=== PATIENT | female | born 1965 | race Caucasian/White ===

== ENCOUNTER 2017-01-16 20:06 | Emergency (ER) | payer OTHER ==
[~2017-01-16] VITALS: Ht 165.1 cm; Wt 94.3 kg
[~2017-01-16 20:06] MED LIST: ASPIR-LOW81 M1 PO; BACDS PO; BACO TOP; BACTRIM DS1 TAB PO; BEN25 PO; CEPHALEXIN500 MG PO; CICLOPIROX OLAM0.77% TOP; CIPRO250 MG PO; CLINDAMYCIN HC300 MG PO; CLINDAMYCIN PO; CLINDAMYCIN300 M1 PO; COLACE100 MG PO; DOC-Q-LACE100 MG PO; DOXYCYCLINE HY100 MG PO; FERROUS SULFAT325 M2 PO; FISH OIL500 MG PO; FOLIC ACID1 MG PO; GLU5 PO; GOOD SENSE ASPI81 M3 PO; HIBICLENS118 ML TOP; HYDROCORTISONE11 TOP; KEF500 PO; KEFLEX500 MG PO; L40 PO; LAC PO; LAC15L PO; LEVAQUIN750 MG PO; MAG PO; METFORMIN ER500 M1 PO; METFORMIN HCL500 MG PO; MIC8 PO; MOT600 PO; MOTRIN800 MG PO; NAPROSYN500 MG PO; NEO500 PO; NORCO1 TA2 PO; OMEPRAZOLE DR20 M1 PO; PRE5 PO; PRI20 PO; VITAMIN B121000 MC3 PO; ZES10 PO; ZES20 PO; ZESTRIL20 MG PO; ZOC20 PO; ZOCOR40 MG PO; [UNRECOGNIZED DRUG - OTHER] TP
[2017-01-16 23:13] VITALS: BP 133/77
== END 2017-01-16 23:13 | disposition home or self-care (01) ==
LOC: ED 20:06
DX: L02.212 Cutaneous abscess of back [any part, except buttock and flank] (principal); E78.00 Pure hypercholesterolemia, unspecified
CPT/HCPCS: J0696; J1885; J2001

== ENCOUNTER 2017-01-18 19:12 | Inpatient (IN) | payer OTHER ==
[~2017-01-18] VITALS: Ht 165.1 cm; Wt 94.8 kg
[2017-01-18 20:34] LABS: BASOPHIL % 0.4 % (0-2); PLATELET COUNT 180 x10^3mcL (130-400); RED CELL DISTRIBUTION WIDTH 14.3 % (11.5-14.5)
[2017-01-18 20:53] LABS: CALCIUM 8.7 mg/dL (8.5-10.1); CARBON DIOXIDE 30.5 mmol/L (21-32); CHLORIDE SERUM 105 mmol/L (98-107); CREATININE SERUM 0.7 mg/dL (0.6-1.0); GFR1 > 60 mL/min; GLUCOSE SERUM 96 mg/dL (74-106); POTASSIUM SERUM 3.9 mmol/L (3.5-5.1); SODIUM SERUM 142 mmol/L (136-145)
[2017-01-18 21:04] LABS: ALBUMIN 3.2 g/dL (3.4-5.0); ALKALINE PHOSPHATASE 141 U/L (46-116); ALT/SGPT 22 U/L (14-59); AST/SGOT 22 U/L (15-37); BILIRUBIN TOTAL 0.3 mg/dL (0.20-1.00); TOTAL PROTEIN, SERUM 8.1 g/dL (6.4-8.2)
[2017-01-18 21:06] LABS: CK-MB 3.6 ng/mL (0-3.6)
[2017-01-18 21:44] LABS: MAGNESIUM 1.9 mg/dL (1.8-2.4)
[2017-01-18 21:45] LABS: FREE T4 1.2 ng/dL (0.76-1.46); FREE THYROXINE INDEX 2.8 ug/dL (1.4-4.5); T3 TOTAL 1.14 ng/mL; T4(THYROXINE) 8.7 ug/dL (4.7-13.3)
[2017-01-18] MEDS ORDERED: NORCO1 TA2 PO (22:01)
[2017-01-18 23:59] VITALS: BP 118/78
[2017-01-19 02:09] LABS: UA SPECIFIC GRAVITY >=1.030 (1.005-1.035); microscopic required? YES; urine erythrocyte 3+ (NEGATIVE)
[2017-01-19 02:29] LABS: AMPHETAMINE QUAL UR NONE DETECTED (NEG <=1000)
[2017-01-19 06:27] LABS: BASOPHIL % 0.5 % (0-2); PLATELET COUNT 165 x10^3mcL (130-400)
[2017-01-19 06:32] LABS: CALCIUM 8.3 mg/dL (8.5-10.1); CARBON DIOXIDE 27.1 mmol/L (21-32); CHLORIDE SERUM 104 mmol/L (98-107); CREATININE SERUM 0.6 mg/dL (0.6-1.0); GFR1 > 60 mL/min; GLUCOSE SERUM 89 mg/dL (74-106); MAGNESIUM 1.9 mg/dL (1.8-2.4); PHOSPHOROUS 4.1 mg/dL (2.5-4.9); SODIUM SERUM 140 mmol/L (136-145)
[2017-01-19 07:11] LABS: RED CELL DISTRIBUTION WIDTH 14.6 % (11.5-14.5)
[2017-01-19 09:02] VITALS: BP 102/53
[2017-01-19 13:59] VITALS: BP 92/47
[2017-01-19 17:20] VITALS: BP 108/62
[2017-01-19 21:23] VITALS: BP 121/61
[2017-01-20 05:51] LABS: BASOPHIL % 0.5 % (0-2); PLATELET COUNT 162 x10^3mcL (130-400); RED CELL DISTRIBUTION WIDTH 14.1 % (11.5-14.5)
[2017-01-20 05:56] LABS: CALCIUM 8.5 mg/dL (8.5-10.1); CARBON DIOXIDE 26.4 mmol/L (21-32); CHLORIDE SERUM 105 mmol/L (98-107); CREATININE SERUM 0.6 mg/dL (0.6-1.0); GFR1 > 60 mL/min; GLUCOSE SERUM 82 mg/dL (74-106); MAGNESIUM 1.7 mg/dL (1.8-2.4); PHOSPHOROUS 4.5 mg/dL (2.5-4.9); POTASSIUM SERUM 4.1 mmol/L (3.5-5.1); SODIUM SERUM 139 mmol/L (136-145)
[2017-01-20 06:00] VITALS: BP 94/51
[2017-01-20 10:07] VITALS: BP 98/58
[2017-01-20 18:46] VITALS: BP 121/71
[2017-01-20 21:44] VITALS: BP 99/53
[2017-01-21 05:44] VITALS: BP 116/62
[2017-01-21 06:38] LABS: BASOPHIL % 0.5 % (0-2); PLATELET COUNT 143 x10^3mcL (130-400); RED CELL DISTRIBUTION WIDTH 14.5 % (11.5-14.5)
[2017-01-21 06:50] LABS: CALCIUM 8.5 mg/dL (8.5-10.1); CARBON DIOXIDE 26.9 mmol/L (21-32); CHLORIDE SERUM 103 mmol/L (98-107); CREATININE SERUM 0.6 mg/dL (0.6-1.0); GFR1 > 60 mL/min; GLUCOSE SERUM 88 mg/dL (74-106); MAGNESIUM 1.8 mg/dL (1.8-2.4); PHOSPHOROUS 4.1 mg/dL (2.5-4.9); POTASSIUM SERUM 4.1 mmol/L (3.5-5.1); SODIUM SERUM 138 mmol/L (136-145)
[2017-01-21 09:20] VITALS: BP 126/67
[2017-01-21 18:17] VITALS: BP 98/59
[2017-01-21 21:30] VITALS: BP 100/55
[2017-01-22 06:18] VITALS: BP 110/52
[2017-01-22 06:29] LABS: CALCIUM 8.6 mg/dL (8.5-10.1); CARBON DIOXIDE 26.8 mmol/L (21-32); CHLORIDE SERUM 103 mmol/L (98-107); CREATININE SERUM 0.7 mg/dL (0.6-1.0); GFR1 > 60 mL/min; GLUCOSE SERUM 94 mg/dL (74-106); POTASSIUM SERUM 3.9 mmol/L (3.5-5.1); SODIUM SERUM 137 mmol/L (136-145)
[2017-01-22 06:54] LABS: BASOPHIL % 0.4 % (0-2); PLATELET COUNT 121 x10^3mcL (130-400); RED CELL DISTRIBUTION WIDTH 14.2 % (11.5-14.5)
[2017-01-22 08:00] VITALS: BP 94/45
[2017-01-22 18:23] VITALS: BP 113/64
[2017-01-22 20:16] VITALS: BP 94/50
[2017-01-22 22:52] VITALS: BP 110/60
[2017-01-23 06:05] VITALS: BP 194/60
[2017-01-23 06:18] LABS: BASOPHIL % 0.6 % (0-2)
[2017-01-23 06:25] LABS: CALCIUM 8.4 mg/dL (8.5-10.1); CARBON DIOXIDE 25.6 mmol/L (21-32); CHLORIDE SERUM 104 mmol/L (98-107); CREATININE SERUM 0.7 mg/dL (0.6-1.0); GFR1 > 60 mL/min; GLUCOSE SERUM 87 mg/dL (74-106); POTASSIUM SERUM 4.1 mmol/L (3.5-5.1); SODIUM SERUM 139 mmol/L (136-145)
[2017-01-23 06:43] LABS: PLATELET COUNT 122 x10^3mcL (130-400); RED CELL DISTRIBUTION WIDTH 14.6 % (11.5-14.5)
[2017-01-23 09:22] VITALS: BP 93/47
[2017-01-23 13:53] VITALS: BP 93/47
[2017-01-23] MEDS ORDERED: LAC PO (13:54)
[2017-01-23] MEDS ORDERED: NOR10T PO (13:55)
[2017-01-23] MEDS ORDERED: BACDS PO (13:55)
[2017-01-23] MEDS ORDERED: COL100UDC PO (13:55)
== END 2017-01-23 16:22 | disposition home health service (06) | DRG 383 ==
LOC: ED 19:12 → DU 20:25 → MU 20:25 → DU 22:59 → MU 01-19 16:38
PROVIDERS: Emergency Medicine; Family Medicine; Surgery; ADMIT Family Medicine
PROC: 0JB70ZZ Excision of Back Subcutaneous Tissue and Fascia, Open Approach (ICD-10-PCS; principal; 2017-01-21 12:00)
DX: L03.312 Cellulitis of back [any part except buttock and flank] (principal); N17.0 Acute kidney failure with tubular necrosis; E44.0 Moderate protein-calorie malnutrition; D68.69 Other thrombophilia; E83.42 Hypomagnesemia; E11.9 Type 2 diabetes mellitus without complications; R31.9 Hematuria, unspecified; D64.9 Anemia, unspecified; I10 Essential (primary) hypertension; E78.5 Hyperlipidemia, unspecified; E66.9 Obesity, unspecified; Z68.34 Body mass index [BMI] 34.0-34.9, adult; Z87.11 Personal history of peptic ulcer disease; Z91.19 Patient's noncompliance with other medical treatment and regimen; Z86.14 Personal history of Methicillin resistant Staphylococcus aureus infection
CPT/HCPCS: 80307; 83880; 84439; 94150; J1170; J2001; J2250; J2270; J2405; J3490; J7030; Q0092

== ENCOUNTER 2017-02-23 01:28 | Inpatient (IN) | payer OTHER ==
[~2017-02-23] VITALS: Ht 167.6 cm; Wt 102.0 kg
[~2017-02-23 01:28] MED LIST changes: +COL100UDC PO; +NOR10T PO
[2017-02-23 02:29] LABS: CALCIUM 8.6 mg/dL (8.5-10.1); CARBON DIOXIDE 27.7 mmol/L (21-32); CHLORIDE SERUM 106 mmol/L (98-107); CREATININE SERUM 0.7 mg/dL (0.6-1.0); GFR1 > 60 mL/min; GLUCOSE SERUM 114 mg/dL (74-106); POTASSIUM SERUM 3.9 mmol/L (3.5-5.1); SODIUM SERUM 141 mmol/L (136-145)
[2017-02-23 02:35] LABS: BASOPHIL % 0.3 % (0-2); PLATELET COUNT 139 x10^3mcL (130-400)
[2017-02-23 02:36] LABS: RED CELL DISTRIBUTION WIDTH 15.4 % (11.5-14.5)
--- NOTE | 2017-02-23 02:40 | NUR ---
PT TO ED WITH C/O LEFT LEG PAIN WITH "CELLULITIS" SINCE . PT DESCRIBES PAIN "TIGHT" WITH INTERMITTENT EPISODES OF SHARP PAIN. PER PT, PT WAS SEEN BY PCP WAS GIVEN ABX, THEN SEEN AGAIN YESTERDAY AND WAS GIVEN "WATER PILLS". PT ALSO STATED TO WASHING WOUND SITE WITH ALCOHOL TO CLEAN DUE TO "BLEEDING". PT STATES NURSE WHO SEES HER RECOMMENDED GOING TO ED TO BE EVALUATED. PT ADMITS TO NON-COMPLIANCE TO DIABETES MEDICATION. PT EDUCATED THE IMPORTANCE OF MEDICATION COMPLIANCE AND WITH INCREASED NON-COMPLIANCE AND EPISODES OF WOUNDS AND INFECTIONS CAN LEAD TO AMPUTATION. PT GAVE UNDERSTANDING, STATING "I KNOW MY NURSE TOLD ME THAT TOO AND I DON'T WANT THAT". PT A&OX4,NO ACUTE DISTERSS NOTED, RESP EVEN AND UNLABORED, POSITIONED TO COMFORT, PLACED ON MONITOR. LEFT LOWER EXTERMITY NOTED WITH SHINY, TIGHT, DISCOLORED CRACKING SKIN WITH SEROSANGUINOUS DISCHARGE NOTED BETWEEN CRACKS OF SKIN. WOUND CULTURE COLLECTED AND SENT TO LAB.
[2017-02-23 02:42] LABS: ALKALINE PHOSPHATASE 131 U/L (46-116); ALT/SGPT 28 U/L (14-59); AST/SGOT 29 U/L (15-37); BILIRUBIN TOTAL 0.27 mg/dL (0.20-1.00); TOTAL PROTEIN, SERUM 7.6 g/dL (6.4-8.2)
--- NOTE | 2017-02-23 02:43 | NUR ---
PT MEDICATD PER ORDER. SEE EMAR. NO S/S OF ADV RXNS AT THIS ITME. WILL CONTINUE TO MONITOR.
[2017-02-23 02:46] LABS: CK-MB 1.2 ng/mL (0-3.6)
[2017-02-23 03:08] LABS: ALBUMIN 3.3 g/dL (3.4-5.0)
[2017-02-23] MEDS ORDERED: METFORMIN500 M1 (03:22)
[2017-02-23] MEDS ORDERED: SULFAMETHOXAZOL1 TA3 (03:22)
[2017-02-23] MEDS ORDERED: IBUPROFEN400 MG (03:23)
[2017-02-23] MEDS ORDERED: METFORMIN HCL500 MG PO (03:48)
[2017-02-23] MEDS ORDERED: IBUPROFEN600 MG PO (03:49)
[2017-02-23] MEDS ORDERED: KLOR-CON 1010 MEQ PO (03:49)
[2017-02-23] MEDS ORDERED: FUROSEMIDE20 MG PO (03:50)
[2017-02-23] MEDS ORDERED: CARISOPRODOL350 MG PO (03:51)
--- NOTE | 2017-02-23 04:13 | NUR ---
PT MEDICATED PER ORDER .SEE EMAR. NO S/S OF ADV RXNS. WILL CONTINUE TO MONITOR.
--- NOTE | 2017-02-23 04:57 | NUR ---
REPORT GIVEN TO ALLEN MONROY TO ASSUME CARE OF PT.
--- NOTE | 2017-02-23 04:57 | NUR ---
REC'D REPORT FROM SANTHOSH VILLA FROM ED.
--- NOTE | 2017-02-23 05:10 | NUR ---
PT TRANSFERRED TO TELE BED 256B VIA [facility] WITH ALLEN LOCO AND EMT JEMAL AT PT SIDE. PT A&OX4,NO ACUTE DISTRESS NOTED, RESP EVEN AND UNLABORED, TRANSFERRED WITHOUT INCIDENCE.
--- NOTE | 2017-02-23 05:56 | NUR ---
REC'D PT FROM ED VIA [facility] ACCOMPANIED BY NURSE AND . PT AAOX4, SPEECH CLEAR. DENIES DIZZINESS OR VILLA. ON TELE #11 READING NSR. DENIES CP OR PALPITATIONS. NO RESP DISTRESS. BREATHING EVEN/UNLABORED ON RA. 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 INCISION TO L BACK COVERED WITH GAUZE, CDI. PICTURES TAKEN. C/O PAIN TO LLE 7-8/10, THROBBING AND TIGHT. WILL GIVE NORCO PER ORDER. PT ABLE TO MOVE ALL EXTREMITIES. REPORTS SOME NUMBING TO LUIS F TOES. LLE ELEVATED WITH TWO PILLOWS. IVF INFUSING TO LFA @ 120 ML/HR. UA COLLECTED. ORIENTED TO DEVICES AND SURROUNDINGS. CALL LIGHT WITHIN REACH, BED AT LOWEST POSITION. WILL CONTINUE TO MONITOR.
[2017-02-23 06:08] LABS: FREE T4 0.88 ng/dL (0.76-1.46); FREE THYROXINE INDEX 2.5 ug/dL (1.4-4.5); T4(THYROXINE) 7.7 ug/dL (4.7-13.3)
[2017-02-23 06:18] VITALS: BP 129/75
--- NOTE | 2017-02-23 07:25 | NUR ---
AAOX4 ABLE TO VERBALIZE NEEDS WITH CLEAR SPEECH, FOUND ON ROOM AIR, PLACED ON OXYGEN VIA NC AT 2L, SYM CHEST EXPANSION, UNLABORED BREATHING, WHEEZING NOTED AT LUIS F MIDLOBES, ON TELE #2 NSR ON MONITOR, DENIES ANY HEART RELATED PAIN OR DISCOMFOR, ACTIVE BOWEL SOUNDS X4 QUADS, IV AT RFA INFUSING NS AT 20ML/HR, REORIENTED TO ROOM AND CALL LIGHT, WILL CONTINUE TO PROVIDE CARE.
[2017-02-23 09:45] VITALS: BP 109/63
--- NOTE | 2017-02-23 11:21 | NUR ---
DOSE OF LEVAQUIN INFUSED, NO S&S OF ALLERGIC REACTION NOTED OR REPORTED, PT STATES FEELING HUNGRY, DR JHONNY RÍOS, NO DIET ORDERS HAVE BEEN ENTERED.
[2017-02-23 13:03] VITALS: BP 99/55
[2017-02-23 13:18] LABS: UA SPECIFIC GRAVITY 1.015 (1.005-1.035); microscopic required? YES; urine erythrocyte 1+ (NEGATIVE)
[2017-02-23 13:26] LABS: AMPHETAMINE QUAL UR NONE DETECTED (NEG <=1000)
--- NOTE | 2017-02-23 13:57 | NUR ---
ABLE TO TOLERATE LUNCH WITHOUT GI DISTRESS, WOUND CULTURE OF BACK ABSCESS OBTAINED, BLE ELEVATED WITH PILLOWS, CALL LIGHT WITHIN REACH, WILL CONTINUE TO PROVIDE CARE.
--- NOTE | 2017-02-23 16:10 | NUR ---
WOUND CULTURES SENT TO LAB.
[2017-02-23 17:17] VITALS: BP 106/68
[2017-02-23 17:18] VITALS: BP 106/68
--- NOTE | 2017-02-23 19:49 | NUR ---
RESTING IN BED, AROUSABLE TO LIGHT TOUCH, C/O SLIGHT DISCOMFORT AT HER LLE, NO OTHER SIGNIFICANT CHANGES NOTED, CARE ENDORSED TO NIGHT NURSE.
--- NOTE | 2017-02-23 19:55 | NUR ---
PT. SLEEPING, EASY TO WAKE, ORIENTED X4. DENIES HEADACHE OR DIZZINESS. BREATH SOUNDS CLEAR THROUGHOUT LUNG NICHOLAS, RESP. EVEN, UNLABORED. ABD. SOFT AND ROUND, BOWEL SOUNDS ACTIVE. BLE PEDAL PULSES MODERATE. LLE CELLULITIS PRESENT. BOARDERS MARKED TO FOLLOW SPREAD OF CELLULITIS. SKIN DRY, ASHENED, DISCOLORED. LT. MID BACK W/ GAUZE DRSG. PT. W/ HX OF CYST DRAINAGE. DRSG CDI. IVF INFUSING WELL, SITE WNL. CALL LIGHT WITHIN REACH.
[2017-02-23 21:33] VITALS: BP 113/57
--- NOTE | 2017-02-23 22:09 | NUR ---
PT. C/O ITCHY DRY SKIN ON BACK AREA. KENALOG CREAM APPLIED TO AREA OF ITCHING. PT.'S BACK SLIGHTLY DRY W/ OLD SCATTERED DARKENED AREAS. LT. MID BACK W/ OLD SCAR FROM CYST INCISION. SKIN HEALED, BUT RED, TENDER AND SWOLLEN.
[2017-02-23 23:59] VITALS: Ht 167.6 cm; Wt 102.0 kg
--- NOTE | 2017-02-24 00:25 | NUR ---
PT. COMPLETED SPONGE BATH. C/O PAIN IN LLE, 04/06. ALSO REQUESTING MORE OR CREAM FOR HER SKIN. PRN MORPHINE WAS GIVEN. WILL MONITOR.
[2017-02-24 05:36] VITALS: BP 104/59
--- NOTE | 2017-02-24 07:15 | NUR ---
RESTING IN BED, AROUSABLE TO LIGHT TOUCH, BLE ELEVATED ON PILLOWS, LLE CONTINUES TO DRAIN CLEAR YELLOW FLUID, DENIES NUMBNESS OR TINGLING, WEAK PEDAL PULSES, LEFT UPPER BACK ABSCESS DRY, NO DRAINAGE NOTED, PT C/O ITCHINESS, KENOLOG CREAM APPLIED AT AFFECTED AREAS, ON TELE #11 NSR ON MONITOR, DENIES ANY HEART RELATED PAIN OR DISCOMFORT, IV INFUSING NS AT 120ML/HR, CALL LIGHT WITHIN REACH, WILL CONTINUE TO PROVIDE CARE.
[2017-02-24 09:50] VITALS: BP 110/68
--- NOTE | 2017-02-24 11:08 | NUR ---
MICROL[facility] REPORTS PRESUMPTIVE MRSA AT LEFT BACK WOUND ABSCESS. PT IS CURRENTLY RECEIVING IV ABX AND IS ON CONTACT ISO.
[2017-02-24 13:16] VITALS: BP 120/73
--- NOTE | 2017-02-24 13:59 | NUR ---
APPLIED KENOLOG CREAM AND COMPRESSION BANDAGES TO LLE, PT TOLERATED WITHOUT DISTRESS.
[2017-02-24 17:45] VITALS: BP 105/67
--- NOTE | 2017-02-24 18:39 | NUR ---
NOTABLE DECREASE IN LLE'S SWELLING AND DRAINAGE, NO DRAINAGE NOTED AT LEFT UPPER BACK, GREAT APPETITE, BG WNL, NO OTHER SIGNIFICANT CHANGES NOTED, WILL ENDORSE CARE TO NIGHT NURSE FOR CONTINUED CARE.
--- NOTE | 2017-02-24 19:40 | NUR ---
PT. AWAKE, ALERT, ORIENTED X4. DENIES HEADACHE OR DIZZINESS. BREATH SOUNDS CLEAR THROUGHOUT LUNG NICHOLAS, RESP. EVEN, UNLABORED. NO SOB NOTED. NSR ON MONITOR. DENIES CHESTPAIN. LLE W/ COMPRESSION WRAP. PEDAL PULSES MODERATE BLE. +1-2 EDEMA TO LLE. SCATTERED DARK SPOTS ON HER BACK AREA. ALSO, PT. HAS HX OF PAST SURGICAL DRAINAGE TO CYST ON LT. MID BACK. SITE HEALED, INTACT W/ NO OPENING NOTED, BUT AREA HAS SOME REDNESS AND DRIED AREAS. PER PT, IT ITCHES HER OFTEN. IVF NS AT 120CC/HR. FAMILY AT BEDSIDE. CALL LIGHT WITHIN REACH.
--- NOTE | 2017-02-24 21:26 | NUR ---
PT. C/O LLE PAIN, 05/06. PRN MORPHINE GIVEN ORDERED. WILL MONITOR.
[2017-02-24 21:59] VITALS: BP 110/60
--- NOTE | 2017-02-24 23:18 | NUR ---
PT. SLEEPING, RECEIVED PRN MORPHINE FOR C/O LLE PAIN. CALL LIGHT WITHIN REACH.
[2017-02-25 05:15] VITALS: BP 113/61
[2017-02-25 06:47] LABS: CALCIUM 8.4 mg/dL (8.5-10.1); CARBON DIOXIDE 28.5 mmol/L (21-32); CHLORIDE SERUM 106 mmol/L (98-107); CREATININE SERUM 0.6 mg/dL (0.6-1.0); GFR1 > 60 mL/min; GLUCOSE SERUM 78 mg/dL (74-106); MAGNESIUM 1.8 mg/dL (1.8-2.4); PHOSPHOROUS 4.7 mg/dL (2.5-4.9); POTASSIUM SERUM 3.7 mmol/L (3.5-5.1); SODIUM SERUM 141 mmol/L (136-145)
[2017-02-25 07:02] LABS: BASOPHIL % 0.5 % (0-2)
[2017-02-25 07:18] LABS: PLATELET COUNT 107 x10^3mcL (130-400); RED CELL DISTRIBUTION WIDTH 15.2 % (11.5-14.5)
--- NOTE | 2017-02-25 07:25 | NUR ---
RECIEVED REPORT FROM SUKHI VILLA AT BEDSIDE. PT IS AAOX4 ABLE TO FOLLOW VERBAL COMMANDS. ON TELE # 11 NSR, DENIES CHEST PAIN AND HEART PALPITATIONS. L LEG DRESSING CDI. L LEG IS ELEVATED WITH ONE PILLOW. PT'S REDNESS INDICATES RECEEDING PER OUTLINE MARKING ON SKIN. DARK PATCHY DISCOLORATIONS ON BACK. HEALING INCISION ON RIGHT LOWER BACK, OPT. FOUND PT ON RA NO SIGNS OF SOB OR ACUTE DISTRESS, CLEAR BL LUNG SOUNDS. ABD ACTIVE. PT DENIES PAIN AT THIS TIME. NS INFUSING AT 120ML/HR. BED AT LOW AND CALL LIGHT WITHIN REACH.
[2017-02-25 09:15] VITALS: BP 115/65
[2017-02-25 12:34] VITALS: BP 108/59
--- NOTE | 2017-02-25 16:00 | NUR ---
PT C/O OF CONSTIPATION WILL MEDICATE PER EMAR.
[2017-02-25 16:36] VITALS: BP 114/74
--- NOTE | 2017-02-25 19:07 | NUR ---
PT IS RESTING IN BED WITH EVEN CHEST RISE. NO SIGNS OF SOB OR ACUTE DISTRESS. WILL ENDORSE ALL CARE TO ONCOMING RN. BED AT LOW AND CALL LIGHT WITHIN REACH.
--- NOTE | 2017-02-25 20:00 | NUR ---
RECEIVED PT IN BED AWAKE, ALERT, ORIENTED X4. SPEECH CLEAR. ABLE TO MAKE NEEDS KNOWN. LUNG SOUNDS CLEAR. NO TELE MONITOR NOTED. DENIES CHEST PAIN. BS ACTIVE IN ALL FOUR QUADS. ABD IS NONDISTENDED, OBESE. PT HAS FULL ROM, AMBULATES WITHOUT ASSISTANCE. LLE WITH COMPRESSION DRESSING INTACT, ELEVATED WITH PILLOW. IVF INFUSING NS AT 50ML/HR TO LEFT HAND. SHIFT ASSESSMENT COMPLETED. CALL LIGHT WITHIN REACH. WILL CONTINUE TO MONITOR CLOSELY.
[2017-02-25 22:00] VITALS: BP 111/60
--- NOTE | 2017-02-25 23:20 | NUR ---
PT C/O PAIN, MEDICATED WITH NORCO ORDERED. ALL NEEDS TENDED TO. WILL CONTINUE TO MONITOR CLOSELY.
--- NOTE | 2017-02-26 03:00 | NUR ---
PT RESTING IN BED IN NO DISTRESS. APPEARS TO BE SLEEPING WITH EYES CLOSED. IVF ONGOING. CALL LIGHT WITHIN REACH. WILL CONTINUE TO MONITOR CLOSELY.
[2017-02-26 06:42] VITALS: BP 110/60
--- NOTE | 2017-02-26 06:50 | NUR ---
PT APPEARS TO BE SLEEPING IN BED, EASILY AROUSABLE. FSBS IS 80. IVF ONGOING. CALL LIGHT WITHIN REACH. PT HAS BEEN IN CONTACT ISOLATION THROUGH OUT SHIFT. WILL ENDORSE TO INCOMING SHIFT.
--- NOTE | 2017-02-26 07:25 | NUR ---
RECEIVED Pt. AAOX4. RESPIRATIONS EVEN AND UNLABORED. DENIES PAIN/DISCOMFORT AT THIS TIME. NO DISTRESS NOTED IVF RUNNING TO IV AT LEFT HAND PATENT AND INTACT. LLE WITH DSG IN PLACE CDI. BACK SCATTERED BLACK DISCOLORATIONS NOTED. 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 BED LOW/LOCKED. CONTACT PRECAUTIONS OBSERVED. CALL LIGHT IN REACH. WILL CONTINUE TO MONITOR.
[2017-02-26 07:50] LABS: BASOPHIL % 0.5 % (0-2); PLATELET COUNT 108 x10^3mcL (130-400); RED CELL DISTRIBUTION WIDTH 15.1 % (11.5-14.5)
--- NOTE | 2017-02-26 08:30 | NUR ---
MADE ROUNDS WITH DR. MOLINA AND MEDICINE TEAM, Pt. POSSIBLE DISCHARGE TODAY AND AGREED WITH PLAN OF CARE.
[2017-02-26 09:42] VITALS: BP 96/53
--- NOTE | 2017-02-26 13:20 | NUR ---
1000: WOUND CARE EVALUATION NOTES: REASON FOR EVALUATION: LLE VENOUS STASIS ULCERATION AND UPPER BACK ABSCESS COMPLETE SKIN ASSESSMENT DONE ON THIS 52 Y/O FEMALE PATIENT FROM HOME TO [facility], WITH INITIAL DIAGNOSIS OF LEFT LEG CELLULITIS. PAST MEDICAL HISTORY INCLUDE DM, HTN, LEFT LEG CELLULITIS AND LIVER DISEASE. ALL ABOVE INFORMATION WAS OBTAINED FROM THE ADMISSION H&P. LABS ARE WBC 5.1, H/H 10.9/33, GLUCOSE 78, ALBUMIN 3.3, PT/INR 10.6/1.0 AND PTT 28.3. CURRENT MEDS INCLUDE CEFAZOLIN, MULTIVITAMINS, ASPIRIN, METFORMIN, INSULIN, MORPHINE AND NORCO. PATIENT IS AWAKE, ALERT, ORIENTED TO PERSON, PLACE, DATE AND TIME. SKIN WARM TO TOUCH WNL, TOENAILS WNL, NO EDEMA, NO HAIR GROWTH AND +2 BILATERAL PEDAL PULSES. URINE AND BOWEL CONTINENT, ABLE TO AMBULATE TO THE RESTROOM CLAIMED. MULTIPLE SELF INFLICTED SCRATCHES NOTED ON THE BACK, ABDOMEN AND ARMS. INITIAL PLAN OF CARE AND PRESSURE PREVENTIVE MEASURES DISCUSSED, ABLE TO VERBALIZE UNDERSTANDING. INTEGUMENTARY: LLE - VENOUS STASIS DERMATITIS - DRY, FLAKY WITH DISCOLORATION. LEFT MID BACK - WITH PINK SCARRING AND DISCOLORATIONS RECOMMENDATIONS: -CLEANSE LLE WITH MILD SOAP AND WATER, PAT DRY, APPLY VIT A&D OINT, WARP WITH CASEY AND SERENA WRAP Q DAY AND PRN WITH SOILING/DISPLACEMENT -ENCOURAGE PATIENT TO TURN AND REPOSITION SELF Q2H WHEN IN BED -ASSESS SKIN CONDITION DURING POSITION CHANGE, PLEASE PAY PARTICULAR ATTENTION TO SACRALCOCCYX, ELBOWS AND HEELS -OFFLOAD BILATERAL HEELS BY PLACING PILLOWS UNDER CALVES AT ALL TIMES, UNLESS OTHERWISE CONTRAINDICATED -KEEP SKIN CLEAN AND DRY AT ALL TIMES. RECOMMENDATIONS DISCUSSED WITH PRIMARY RN AND RESIDENT PHYSICIAN, DR. BARON NO FOLLOW UP NEEDED AT THIS TIME. PLEASE CONTACT [facility] FOR ANY CONCERNS, QUESTIONS AND CHANGES IN SKIN CONDITION. PATIENT IS FOR POSSIBLE D/C TODAY. WOUND CARE D/C INSTRUCTIONS GIVEN, ABLE TO VERBALIZE UNDERSTANDING. D/C PICTURES OBTAINED.
[2017-02-26] MEDS ORDERED: BACDS PO (14:55)
[2017-02-26] MEDS ORDERED: LAC PO (14:55)
[2017-02-26] MEDS ORDERED: KEN025C TOP (15:00)
[2017-02-26 16:39] VITALS: BP 96/50
--- NOTE | 2017-02-26 16:56 | NUR ---
CONSENT OBTAINED FOR RECENT AND PREVIOUS ECHO FROM DR. VILA OFFICE. Pt. REQUESTED FOR DAUGHTER TO SIGN CONSENT DUE TO Pt. FEELING WEAK AT THIS TIME. WITNESSED DAUGHTER RYAN INMAN SIGNS AUTHORIZATION FOR USE OR DISCLOSURE OF HEALTH INFORMATION.
[2017-02-26] MEDS ORDERED: ASPIR 8181 MG PO (18:07)
[2017-02-26] MEDS ORDERED: LIPI10 PO (18:07)
--- NOTE | 2017-02-26 18:43 | NUR ---
Pt. AAOX4. RESPIRATIONS EVEN AND UNLABORED. DENIES PAIN/DISCOMFORT. NO DISTRESS AT THIS TIME. ALL RX AND DISCHARGE INSTRUCTIONS EXPLAINED TO Pt. AND VERBALIZED UNDERSTANDING. Pt. REPORTED THAT WOUND CARE INSTUCTIONS GIVEN BY WOUND RN WHEN DRESSING CHANGE WAS PERFORMED. LEFT BACK WOUND MENDOZA NO DRAINAGE/REDNESS/ODOR NOTED. IV AT LEFT HAND REMOVED WITH CATH INTACT. Pt. LEFT WITH ALL BELONGINGS.
== END 2017-02-26 18:48 | disposition home or self-care (01) | DRG 383 ==
LOC: ED 01:28 → DU 03:45 → MU 02-25 16:00
PROVIDERS: Emergency Medicine; Family Medicine; ADMIT Family Medicine
DX: L03.116 Cellulitis of left lower limb (principal); N17.0 Acute kidney failure with tubular necrosis; D68.69 Other thrombophilia; E11.51 Type 2 diabetes mellitus with diabetic peripheral angiopathy without gangrene; E44.1 Mild protein-calorie malnutrition; L03.312 Cellulitis of back [any part except buttock and flank]; I10 Essential (primary) hypertension; E78.5 Hyperlipidemia, unspecified; F16.10 Hallucinogen abuse, uncomplicated; D64.9 Anemia, unspecified; I87.8 Other specified disorders of veins; E66.9 Obesity, unspecified; Z68.36 Body mass index [BMI] 36.0-36.9, adult; Z79.84 Long term (current) use of oral hypoglycemic drugs
CPT/HCPCS: 80307; 83880; 84439; J0690; J2270; J2405; J7030; Q0092

== ENCOUNTER 2017-05-12 01:42 | Inpatient (IN) | payer OTHER ==
[2017-05-12] VITALS (8 sets, daily range): BP systolic 94–155; BP diastolic 48–82
[~2017-05-12] VITALS: Ht 165.1 cm; Wt 98.5 kg
[~2017-05-12 01:42] MED LIST changes: +ASPIR 8181 MG PO; +CARISOPRODOL350 MG PO; +FUROSEMIDE20 MG PO; +IBUPROFEN400 MG; +IBUPROFEN600 MG PO; +KEN025C TOP; +KLOR-CON 1010 MEQ PO; +LIPI10 PO; +METFORMIN500 M1; +SULFAMETHOXAZOL1 TA3
[2017-05-12 02:53] LABS: RED CELL DISTRIBUTION WIDTH 14.2 % (11.5-14.5)
[2017-05-12 02:56] LABS: BASOPHIL % 0 % (0-2); PLATELET COUNT 76 x10^3mcL (130-400)
[2017-05-12 02:59] LABS: CALCIUM 7.4 mg/dL (8.5-10.1); CARBON DIOXIDE 19.3 mmol/L (21-32); CHLORIDE SERUM 105 mmol/L (98-107); CREATININE SERUM 0.8 mg/dL (0.6-1.0); GFR1 > 60 mL/min; GLUCOSE SERUM 104 mg/dL (74-106); POTASSIUM SERUM 3.3 mmol/L (3.5-5.1); SODIUM SERUM 136 mmol/L (136-145)
[2017-05-12 03:03] LABS: ALBUMIN 2.3 g/dL (3.4-5.0); ALKALINE PHOSPHATASE 74 U/L (46-116); ALT/SGPT 64 U/L (14-59); AST/SGOT 85 U/L (15-37); BILIRUBIN TOTAL 0.82 mg/dL (0.20-1.00); TOTAL PROTEIN, SERUM 6.2 g/dL (6.4-8.2)
[2017-05-12 03:15] LABS: CK-MB < 0.5 ng/mL (0-3.6); CREATINE KINASE 39 U/L (26-192)
[2017-05-12 05:29] LABS: UA SPECIFIC GRAVITY <=1.005 (1.005-1.035); microscopic required? YES; urine erythrocyte 3+ (NEGATIVE)
[2017-05-12 07:07] LABS: CHOLESTEROL/HDL RATIO 2.3; MAGNESIUM 1.6 mg/dL (1.8-2.4)
[2017-05-12 07:17] LABS: FREE T4 1.05 ng/dL (0.76-1.46)
[2017-05-12 07:19] LABS: FREE THYROXINE INDEX 1.7 ug/dL (1.4-4.5); T4(THYROXINE) 4.5 ug/dL (4.7-13.3)
[2017-05-12 08:57] LABS: AMPHETAMINE QUAL UR NONE DETECTED (NEG <=1000)
[2017-05-12 13:23] LABS: T3 TOTAL 0.52 ng/mL
[2017-05-13 06:29] LABS: CARBON DIOXIDE 23.6 mmol/L (21-32); CHLORIDE SERUM 102 mmol/L (98-107); CREATININE SERUM 0.7 mg/dL (0.6-1.0); GFR1 > 60 mL/min; GLUCOSE SERUM 79 mg/dL (74-106); MAGNESIUM 1.6 mg/dL (1.8-2.4); PHOSPHOROUS 2.1 mg/dL (2.5-4.9); POTASSIUM SERUM 3.7 mmol/L (3.5-5.1); SODIUM SERUM 133 mmol/L (136-145)
[2017-05-13 06:40] VITALS: BP 131/71
[2017-05-13 06:58] LABS: BASOPHIL % 0 % (0-2); PLATELET COUNT 67 x10^3mcL (130-400)
[2017-05-13 09:48] VITALS: BP 107/52
[2017-05-13] MEDS ORDERED: LIPI10 PO (10:34)
[2017-05-13] MEDS ORDERED: ASPIR 8181 MG PO (10:35)
[2017-05-13] MEDS ORDERED: IBUPROFEN600 MG PO (10:38)
[2017-05-13] MEDS ORDERED: L20 PO (10:41)
[2017-05-13] MEDS ORDERED: LAC PO (10:42)
[2017-05-13] MEDS ORDERED: LEVAQUIN750 MG PO (10:45)
[2017-05-13] MEDS ORDERED: CLINDAMYCIN HC300 MG PO (10:47)
[2017-05-13] MEDS ORDERED: ACETAMINOPHEN-H1 TA1 PO (10:49)
[2017-05-13 11:56] VITALS: BP 107/52
== END 2017-05-13 13:55 | disposition home or self-care (01) | DRG 720 ==
LOC: ED 01:42 → DU 05:20
PROVIDERS: Emergency Medicine; ADMIT Student in an Organized Health Care Education/Training Program
DX: A41.9 Sepsis, unspecified organism (principal); N17.0 Acute kidney failure with tubular necrosis; E43 Unspecified severe protein-calorie malnutrition; L03.116 Cellulitis of left lower limb; E11.51 Type 2 diabetes mellitus with diabetic peripheral angiopathy without gangrene; I87.8 Other specified disorders of veins; R65.20 Severe sepsis without septic shock; N39.0 Urinary tract infection, site not specified; E83.42 Hypomagnesemia; E87.6 Hypokalemia; Z79.82 Long term (current) use of aspirin; Z79.84 Long term (current) use of oral hypoglycemic drugs
CPT/HCPCS: 83880; 84439; J0696; J1956; J3490; J7030; Q0092

== ENCOUNTER 2017-05-20 12:40 | Inpatient (IN) | payer OTHER ==
[~2017-05-20] VITALS: Ht 167.6 cm; Wt 99.0 kg
[~2017-05-20 12:40] MED LIST changes: +ACETAMINOPHEN-H1 TA1 PO; +L20 PO
[2017-05-20 14:21] LABS: BASOPHIL % 0.3 % (0-2); PLATELET COUNT 223 x10^3mcL (130-400)
[2017-05-20 14:32] LABS: CALCIUM 8.5 mg/dL (8.5-10.1); CARBON DIOXIDE 27.8 mmol/L (21-32); CHLORIDE SERUM 102 mmol/L (98-107); CREATININE SERUM 0.8 mg/dL (0.6-1.0); GFR1 > 60 mL/min; GLUCOSE SERUM 117 mg/dL (74-106); SODIUM SERUM 134 mmol/L (136-145)
[2017-05-20 14:36] LABS: ALKALINE PHOSPHATASE 227 U/L (46-116); ALT/SGPT 31 U/L (14-59); AST/SGOT 24 U/L (15-37); BILIRUBIN TOTAL 0.4 mg/dL (0.20-1.00); TOTAL PROTEIN, SERUM 8.2 g/dL (6.4-8.2)
[2017-05-20 14:37] LABS: ALBUMIN 2.5 g/dL (3.4-5.0)
[2017-05-20 17:22] LABS: MAGNESIUM 1.8 mg/dL (1.8-2.4); PHOSPHOROUS 5.5 mg/dL (2.5-4.9)
[2017-05-20 17:25] LABS: CHOLESTEROL/HDL RATIO 4.2
[2017-05-20 17:27] LABS: T3 TOTAL 1.18 ng/mL
[2017-05-20 17:28] LABS: FREE T4 1.25 ng/dL (0.76-1.46)
[2017-05-20 18:53] LABS: microscopic required? YES; urine erythrocyte 3+ (NEGATIVE)
[2017-05-20 19:05] LABS: AMPHETAMINE QUAL UR NONE DETECTED (NEG <=1000)
[2017-05-21 08:50] VITALS: BP 108/78
[2017-05-21 10:43] VITALS: BP 108/78
[2017-05-21 17:19] VITALS: BP 111/65
[2017-05-21 21:16] VITALS: BP 115/66
[2017-05-22 05:55] VITALS: BP 127/70
[2017-05-22 06:34] LABS: CALCIUM 8.7 mg/dL (8.5-10.1); CARBON DIOXIDE 27.1 mmol/L (21-32); CHLORIDE SERUM 98 mmol/L (98-107); CREATININE SERUM 0.7 mg/dL (0.6-1.0); GFR1 > 60 mL/min; GLUCOSE SERUM 89 mg/dL (74-106); MAGNESIUM 2.1 mg/dL (1.8-2.4); PHOSPHOROUS 4.5 mg/dL (2.5-4.9); POTASSIUM SERUM 4.5 mmol/L (3.5-5.1); SODIUM SERUM 134 mmol/L (136-145)
[2017-05-22 06:38] LABS: BASOPHIL % 0.2 % (0-2); PLATELET COUNT 249 x10^3mcL (130-400); RED CELL DISTRIBUTION WIDTH 13.9 % (11.5-14.5)
[2017-05-22 09:52] VITALS: BP 91/39
[2017-05-22 14:05] VITALS: BP 116/72
[2017-05-22 16:38] LABS: RED BLOOD CELLS 3.75 M/mm3 (4.10-5.10)
[2017-05-22 16:42] LABS: IRON 45 ug/dL (50-170); TOTAL IRON BINDING CAPACITY 293 ug/dL (250-450)
[2017-05-22 17:57] VITALS: BP 120/72
[2017-05-22 22:04] VITALS: BP 124/72
[2017-05-23 04:00] VITALS: BP 116/72
[2017-05-23 06:57] VITALS: BP 109/66
[2017-05-23 09:19] VITALS: BP 112/60
[2017-05-23 13:08] VITALS: BP 11/62
[2017-05-23 17:57] VITALS: BP 111/65
[2017-05-23 20:59] VITALS: BP 101/60
[2017-05-24 05:52] VITALS: BP 102/53
[2017-05-24 06:24] LABS: CHLORIDE SERUM 99 mmol/L (98-107); CREATININE SERUM 0.9 mg/dL (0.6-1.0); GFR1 > 60 mL/min; GLUCOSE SERUM 80 mg/dL (74-106); PHOSPHOROUS 4.9 mg/dL (2.5-4.9); POTASSIUM SERUM 4.3 mmol/L (3.5-5.1); SODIUM SERUM 132 mmol/L (136-145)
[2017-05-24 06:31] LABS: BASOPHIL % 0.5 % (0-2); PLATELET COUNT 266 x10^3mcL (130-400); RED CELL DISTRIBUTION WIDTH 14.1 % (11.5-14.5)
[2017-05-24 10:00] VITALS: BP 118/64
[2017-05-24] MEDS ORDERED: CLINDAMYCIN HC300 MG PO ×2 (12:54→17:33)
[2017-05-24] MEDS ORDERED: NORCO1 TA2 PO (13:03)
[2017-05-24 14:25] VITALS: BP 109/66
[2017-05-24] MEDS ORDERED: IBUPROFEN400 MG PO (17:12)
== END 2017-05-24 18:30 | disposition home or self-care (01) | DRG 383 ==
LOC: ED 12:40 → DU 05-21 06:51 → MU 05-24 08:58
PROVIDERS: Emergency Medicine; Family Medicine; ADMIT Family Medicine
DX: L03.116 Cellulitis of left lower limb (principal); E43 Unspecified severe protein-calorie malnutrition; I42.9 Cardiomyopathy, unspecified; D68.69 Other thrombophilia; E11.51 Type 2 diabetes mellitus with diabetic peripheral angiopathy without gangrene; E87.1 Hypo-osmolality and hyponatremia; D64.9 Anemia, unspecified; F16.10 Hallucinogen abuse, uncomplicated; I34.0 Nonrheumatic mitral (valve) insufficiency; Z79.84 Long term (current) use of oral hypoglycemic drugs; Z68.35 Body mass index [BMI] 35.0-35.9, adult; E66.9 Obesity, unspecified; E83.39 Other disorders of phosphorus metabolism
CPT/HCPCS: 83880; 84439; 97110-GP; 97116-GP; 97530-GP; J2270; J2405; J2543; J3010; J3370; J7030; Q0092

== ENCOUNTER 2018-04-07 01:11 | Emergency (ER) | payer OTHER ==
[~2018-04-07] VITALS: Ht 157.5 cm; Wt 105.2 kg
[~2018-04-07 01:11] MED LIST changes: +IBUPROFEN400 MG PO
[2018-04-07 01:19] VITALS: Ht 157.5 cm; Wt 105.2 kg
[2018-04-07 01:48] LABS: BASOPHIL % 0.2 % (0-2); PLATELET COUNT 148 x10^3mcL (130-400); RED CELL DISTRIBUTION WIDTH 12.8 % (11.5-14.5)
[2018-04-07 02:04] LABS: CALCIUM 8.3 mg/dL (8.5-10.1); CARBON DIOXIDE 26.9 mmol/L (21-32); CHLORIDE SERUM 106 mmol/L (98-107); CREATININE SERUM 0.7 mg/dL (0.6-1.0); GFR1 > 60 mL/min; GLUCOSE SERUM 137 mg/dL (74-106); POTASSIUM SERUM 3.7 mmol/L (3.5-5.1); SODIUM SERUM 140 mmol/L (136-145)
[2018-04-07 02:07] LABS: ALKALINE PHOSPHATASE 136 U/L (46-116); ALT/SGPT 16 U/L (14-59); AST/SGOT 21 U/L (15-37); BILIRUBIN TOTAL 0.42 mg/dL (0.20-1.00); TOTAL PROTEIN, SERUM 7.4 g/dL (6.4-8.2)
[2018-04-07 02:12] LABS: ALBUMIN 3.1 g/dL (3.4-5.0)
[2018-04-07 04:42] VITALS: BP 124/74
== END 2018-04-07 04:42 | disposition home or self-care (01) ==
LOC: ED 01:11
PROVIDERS: Emergency Medicine
DX: L03.116 Cellulitis of left lower limb (principal); L03.115 Cellulitis of right lower limb; I10 Essential (primary) hypertension; E11.9 Type 2 diabetes mellitus without complications; E78.00 Pure hypercholesterolemia, unspecified; D64.9 Anemia, unspecified; Z91.013 Allergy to seafood; Z91.048 Other nonmedicinal substance allergy status
CPT/HCPCS: 36415; 83880; Q0092

== ENCOUNTER 2018-05-09 02:14 | Emergency (ER) | payer OTHER ==
[~2018-05-09] VITALS: Ht 170.2 cm; Wt 112.5 kg
[2018-05-09 02:21] VITALS: Ht 170.2 cm; Wt 112.5 kg
[2018-05-09 03:51] LABS: BASOPHIL % 0.3 % (0-2); PLATELET COUNT 131 x10^3mcL (130-400)
[2018-05-09 04:01] LABS: CALCIUM 8.7 mg/dL (8.5-10.1); CARBON DIOXIDE 26.4 mmol/L (21-32); CHLORIDE SERUM 106 mmol/L (98-107); CREATININE SERUM 0.9 mg/dL (0.6-1.0); GFR1 > 60 mL/min; GLUCOSE SERUM 109 mg/dL (74-106); POTASSIUM SERUM 3.3 mmol/L (3.5-5.1); SODIUM SERUM 142 mmol/L (136-145)
[2018-05-09 04:05] LABS: ALKALINE PHOSPHATASE 152 U/L (46-116); ALT/SGPT 17 U/L (14-59); AST/SGOT 24 U/L (15-37); LIPASE 279 IU/L (73-393); TOTAL PROTEIN, SERUM 7.6 g/dL (6.4-8.2)
[2018-05-09 04:18] LABS: ALBUMIN 3.2 g/dL (3.4-5.0)
[2018-05-09 06:41] VITALS: BP 143/88
== END 2018-05-09 06:41 | disposition home or self-care (01) ==
LOC: ED 02:14
PROVIDERS: Emergency Medicine
DX: R60.9 Edema, unspecified (principal); N76.0 Acute vaginitis; L03.115 Cellulitis of right lower limb; E87.6 Hypokalemia; I10 Essential (primary) hypertension; E11.9 Type 2 diabetes mellitus without complications; E78.00 Pure hypercholesterolemia, unspecified; Z91.013 Allergy to seafood; Z91.018 Allergy to other foods
CPT/HCPCS: 83880; 87491; 87591; J1940; Q0092

== ENCOUNTER 2018-06-13 15:01 | Emergency (ER) | payer OTHER ==
[~2018-06-13] VITALS: Ht 165.1 cm; Wt 101.6 kg
[2018-06-13 15:10] VITALS: Ht 165.1 cm; Wt 101.6 kg
[2018-06-13 16:00] VITALS: BP 150/85
== END 2018-06-13 16:00 | disposition home or self-care (01) ==
LOC: ED 15:01
DX: I87.2 Venous insufficiency (chronic) (peripheral) (principal); I10 Essential (primary) hypertension; E11.9 Type 2 diabetes mellitus without complications; E78.00 Pure hypercholesterolemia, unspecified; Z86.2 Personal history of diseases of the blood and blood-forming organs and certain disorders involving the immune mechanism; Z91.013 Allergy to seafood; Z91.018 Allergy to other foods

== ENCOUNTER 2018-06-29 00:54 | Emergency (ER) | payer OTHER ==
[~2018-06-29] VITALS: Ht 165.1 cm; Wt 100.2 kg
[2018-06-29 00:57] VITALS: Ht 165.1 cm; Wt 100.2 kg
[2018-06-29 02:28] LABS: BASOPHIL % 0.5 % (0-2); PLATELET COUNT 142 x10^3mcL (130-400); RED CELL DISTRIBUTION WIDTH 13.7 % (11.5-14.5)
[2018-06-29 02:34] LABS: CALCIUM 8.4 mg/dL (8.5-10.1); CARBON DIOXIDE 23.5 mmol/L (21-32); CHLORIDE SERUM 107 mmol/L (98-107); CREATININE SERUM 0.6 mg/dL (0.6-1.0); GFR1 > 60 mL/min; GLUCOSE SERUM 92 mg/dL (74-106); POTASSIUM SERUM 3.2 mmol/L (3.5-5.1); SODIUM SERUM 142 mmol/L (136-145)
[2018-06-29 02:38] LABS: ALKALINE PHOSPHATASE 107 U/L (46-116); ALT/SGPT 19 U/L (14-59); AST/SGOT 22 U/L (15-37); BILIRUBIN TOTAL 0.54 mg/dL (0.20-1.00); LIPASE 183 IU/L (73-393); TOTAL PROTEIN, SERUM 7.9 g/dL (6.4-8.2)
[2018-06-29 02:39] LABS: ALBUMIN 3.1 g/dL (3.4-5.0)
[2018-06-29 03:12] VITALS: BP 128/76
== END 2018-06-29 03:12 | disposition home or self-care (01) ==
LOC: ED 00:54
PROVIDERS: Emergency Medicine
DX: I87.2 Venous insufficiency (chronic) (peripheral) (principal); R07.89 Other chest pain; I10 Essential (primary) hypertension; E11.9 Type 2 diabetes mellitus without complications; E78.00 Pure hypercholesterolemia, unspecified; Z86.2 Personal history of diseases of the blood and blood-forming organs and certain disorders involving the immune mechanism
CPT/HCPCS: 36415

== ENCOUNTER 2018-10-23 18:32 | Emergency (ER) | payer OTHER ==
[~2018-10-23] VITALS: Ht 165.1 cm; Wt 105.2 kg
[2018-10-23 18:40] VITALS: Ht 165.1 cm; Wt 105.2 kg
[2018-10-23 20:23] LABS: RED CELL DISTRIBUTION WIDTH 14.3 % (11.5-14.5)
[2018-10-23 20:28] LABS: BASOPHIL % 0 % (0-2); PLATELET COUNT 85 x10^3mcL (130-400)
[2018-10-23 20:30] LABS: CALCIUM 7.8 mg/dL (8.5-10.1); CARBON DIOXIDE 24.1 mmol/L (21-32); CHLORIDE SERUM 99 mmol/L (98-107); CREATININE SERUM 0.7 mg/dL (0.6-1.0); GFR1 > 60 mL/min; GLUCOSE SERUM 111 mg/dL (74-106); POTASSIUM SERUM 3.3 mmol/L (3.5-5.1); SODIUM SERUM 132 mmol/L (136-145)
[2018-10-23 20:34] LABS: ALKALINE PHOSPHATASE 112 U/L (46-116); ALT/SGPT 48 U/L (14-59); AST/SGOT 56 U/L (15-37); BILIRUBIN TOTAL 0.62 mg/dL (0.20-1.00); TOTAL PROTEIN, SERUM 7.2 g/dL (6.4-8.2)
[2018-10-23 20:36] LABS: ALBUMIN 2.5 g/dL (3.4-5.0)
[2018-10-23 23:01] LABS: microscopic required? YES; urine erythrocyte 3+ (NEGATIVE)
[2018-10-23 23:46] VITALS: BP 107/55
== END 2018-10-24 | disposition home or self-care (01) ==
LOC: ED 18:32
PROVIDERS: Emergency Medicine
DX: L03.115 Cellulitis of right lower limb (principal); J06.9 Acute upper respiratory infection, unspecified; I10 Essential (primary) hypertension; E11.9 Type 2 diabetes mellitus without complications; E78.00 Pure hypercholesterolemia, unspecified; M54.5 Low back pain; Z86.2 Personal history of diseases of the blood and blood-forming organs and certain disorders involving the immune mechanism; Z91.013 Allergy to seafood
CPT/HCPCS: 87804; J1885; J2543; J3370; J7030; J7050; Q0092

== ENCOUNTER 2019-11-01 23:10 | Emergency (ER) | payer MEDICAID ==
[~2019-11-01] VITALS: Ht 165.1 cm; Wt 93.4 kg
[2019-11-01 23:14] VITALS: BP 166/68; Ht 165.1 cm; Wt 93.4 kg
== END 2019-11-02 01:01 | disposition home or self-care (01) ==
LOC: ED 23:10
DX: L03.116 Cellulitis of left lower limb (principal); L98.499 Non-pressure chronic ulcer of skin of other sites with unspecified severity; I10 Essential (primary) hypertension; E11.9 Type 2 diabetes mellitus without complications; E78.00 Pure hypercholesterolemia, unspecified; N83.209 Unspecified ovarian cyst, unspecified side; Z86.2 Personal history of diseases of the blood and blood-forming organs and certain disorders involving the immune mechanism; Z91.013 Allergy to seafood